=== PATIENT | male | born 1975 | race Caucasian/White ===

== ENCOUNTER 2019-03-30 20:43 | Emergency (ER) | payer BC ==
[~2019-03-30] VITALS: Ht 180.3 cm; Wt 90.0 kg
[2019-03-30 20:58] VITALS: BP 173/92
--- NOTE | 2019-03-30 21:08 | PHYS DOC ---
Past History Past Medical History: No Pertinent History Past Surgical History: No Surgical History Alcohol Use: Occasionally Adult General Chief Complaint Chief Complaint: MECHANICAL FALL HPI HPI Patient is a 43-year-old male who presents to the emergency department for evaluation. He states 10 days ago he slipped on the ice and landed awkwardly, with his fist against his left ribs. He had some mild residual soreness over the past 2 days, but states today he twisted wrong, and felt a crack in his left ribs, and is having pain in that area. He denies any significant shortness of breath, but deep breathing worsens his pain. He denies any cough, hematemesis, dizziness, lightheadedness, or abdominal pain. There are no alleviating or exacerbating factors to his symptoms except as noted above. Review of Systems Review of Systems Constitutional: Denies fever or chills [] Eyes: Denies change in visual acuity, redness, or eye pain [] HENT: Denies nasal congestion or sore throat [] Respiratory: Denies cough or shortness of breath [] Cardiovascular: No additional information not addressed in HPI [] GI: Denies abdominal pain, nausea, vomiting, bloody stools or diarrhea [] : Denies dysuria or hematuria [] Musculoskeletal: Denies back pain or joint pain [] Integument: Denies rash or skin lesions [] Neurologic: Denies headache, focal weakness or sensory changes [] Endocrine: Denies polyuria or polydipsia [] All other systems were reviewed and found to be within normal limits, except as documented in this note. Current Medications Current Medications Current Medications Medications (Trade) Dose Ordered Sig/[facility] Start Time Stop Time Status Last Admin Dose Admin Acetaminophen (Tylenol) 650 mg 1X ONCE 03/30/19 21:15 03/30/19 21:16 UNV Allergies Allergies Allergies Coded Allergies Type Severity Reaction Last Updated Verified No Known Drug Allergies 03/30/19 No Physical Exam Physical Exam PHYSICAL EXAM: CONSTITUTIONAL: Well developed, well nourished HEAD: normocephalic, atraumatic EENT: PERRL, EOMI. Conjunctivae normal color, sclerae non-icteric; moist mucous membranes. NECK: Supple, non-tender; no meningismus. LUNGS: Lungs CTA, breathing even and unlabored. Normal air movement. HEART: Regular rate and rhythm, no murmur CHEST: No deformity; there is tenderness to palpation to the left lateral/inferior costal margin, without any crepitus, bruising, or deformity. The remainder of the thorax is atraumatic. ABDOMEN: The abdomen is soft, and non-tender, no masses or bruits. EXTREM: Normal ROM; no deformity, no calf tenderness. Normal pulses palpable in all extremities. There is no pedal edema. SKIN: No rash; no diaphoresis NEURO: Alert; normal speech and cognition; CN's grossly intact; strength grossly intact without focal deficit. BACK: No CVA TTP. Current Patient Data Vital Signs Vital Signs Date Time Temp Pulse Resp B/P (MAP) Pulse Ox O2 Delivery O2 Flow Rate FiO2 03/30/19 20:58 98.6 119 18 173/92 (119) 98 Room Air EKG EKG [] Radiology/Procedures Radiology/Procedures []ER physician preliminary chest/rib x-ray interpretation: No acute abnormality noted. Course & Med Decision Making Course & Med Decision Making Pertinent Imaging studies reviewed. (See chart for details) []I discussed the patient's incidentally noted elevated blood pressure, something he states is a chronic problem for him. I discussed the importance of further outpatient follow-up and blood pressure treatment. We discussed test results, home care plan, and return precautions in detail. Dragon Disclaimer Dragon Disclaimer This electronic medical record was generated, in whole or in part, using a voice recognition dictation system. Departure Departure: Impression: Primary Impression: Chest wall contusion Disposition: HOME, SELF-CARE Condition: STABLE Patient Instructions: Rib Contusion Additional Instructions: Ibuprofen 400-600 mg every 6 hours may help improve your symptoms. AYLEEN SALVADOR MD Mar 30, 2019 21:08
[2019-03-30] MEDS ORDERED: ACETAMINOPHEN 325 MG TABLET PO ONE (21:30)
--- NOTE | 2019-03-30 21:54 | RAD ---
RIBS LEFT AND PA CHEST History: Fall. Pain. Technique: PA view the chest and additional views of the left ribs. Comparison: None. Findings: No consolidation or pleural effusion. No pneumothorax. Normal heart size. No displaced rib fractures. Impression: 1. No acute cardiopulmonary process. No displaced rib fractures. Electronically signed by: Cristino Jj DO (03/30/2019 9:52 PM) [id number]
== END 2019-03-30 21:50 | disposition home or self-care (01) ==
LOC: ER 20:43
DX: S20.212A Contusion of left front wall of thorax, initial encounter (principal); W00.0XXA Fall on same level due to ice and snow, initial encounter; Y93.89 Activity, other specified; Y92.89 Other specified places as the place of occurrence of the external cause; Y99.8 Other external cause status
CPT/HCPCS: 71101; 99284

== ENCOUNTER 2020-11-11 20:34 | Emergency (ER) | payer BC ==
[~2020-11-11] VITALS: Ht 180.3 cm; Wt 85.1 kg
[2020-11-11 20:45] VITALS: BP 158/86
--- NOTE | 2020-11-11 21:42 | RAD ---
XR RIBS MIN 3 VIEWS RT W/PA CHEST DATE: 11/11/2020 8:57 PM INDICATION: fall, PAIN MID-POST RIBS / Spl. Instructions: / History: COMPARISON: None available. FINDINGS: Chest: Heart size is within normal limits. No focal consolidations are seen. No evidence for pulmona ry edema, pleural effusion, or pneumothorax. Bones: No radiographic evidence for a displaced, right-sided rib fracture is seen. IMPRESSION: No radiographic evidence for right-sided rib fracture. Electronically signed by: Albert Damico MD (11/11/2020 9:40 PM) [facility]
--- NOTE | 2020-11-11 21:50 | PHYS DOC ---
Past History Past Medical History: No Pertinent History Past Surgical History: No Surgical History Alcohol Use: Occasionally General Adult EDM: Chief Complaint: RIB PAIN HPI: HPI: 45-year-old male presents with right-sided rib pain. The patient was standing on the bumper of his truck moving a tire when he slipped and landed on his right ribs on the tailgate. This was several days ago. He comes in tonight because he is still having pain and is concerned he may have a fracture. He sneezed today and was extremely painful. He denies chest pain or shortness of breath. He has no other complaints this time. Review of Systems: Review of Systems: Constitutional: Denies fever or chills Eyes: Denies change in visual acuity HENT: Denies nasal congestion or sore throat Respiratory: Denies cough or shortness of breath Cardiovascular: Denies chest pain or edema GI: Denies abdominal pain, nausea, vomiting, bloody stools or diarrhea : Denies dysuria Musculoskeletal: Right rib pain Integument: Denies rash Neurologic: Denies headache, focal weakness or sensory changes Endocrine: Denies polyuria or polydipsia Lymphatic: Denies swollen glands Psychiatric: Denies depression or anxiety Allergies: Allergies: Allergies Coded Allergies Type Severity Reaction Last Updated Verified No Known Drug Allergies 03/30/19 No Physical Exam: PE: Constitutional: Well developed, well nourished, no acute distress, non-toxic appearance. [] HENT: Normocephalic, atraumatic, bilateral external ears normal, oropharynx moist, no oral exudates, nose normal. [] Eyes: PERRLA, EOMI, conjunctiva normal, no discharge. [] Neck: Normal range of motion, no tenderness, supple, no stridor. [] Cardiovascular:Heart rate regular rhythm, no murmur [] Lungs & Thorax: Bilateral breath sounds clear to auscultation. No ecchymosis or obvious signs of trauma of the right chest wall. [] Abdomen: Bowel sounds normal, soft, no tenderness, no masses, no pulsatile ma sses. [] Skin: Warm, dry, no erythema, no rash. [] Back: No tenderness, no CVA tenderness. [] Extremities: No tenderness, no cyanosis, no clubbing, ROM intact, no edema. [] Neurologic: Alert and oriented X 3, normal motor function, normal sensory function, no focal deficits noted. [] Psychologic: Affect normal, judgement normal, mood normal. [] EKG: EKG: [] Radiology/Procedures: Radiology/Procedures: [] Impressions: XR RIBS MIN 3 VIEWS RT W/PA CHEST DATE: 11/11/2020 8:57 PM INDICATION: fall, PAIN MID-POST RIBS / Spl. Instructions: / History: COMPARISON: None available. FINDINGS: Chest: Heart size is within normal limits. No focal consolidations are seen. No evidence for pulmonary edema, pleural effusion, or pneumothorax. Bones: No radiographic evidence for a displaced, right-sided rib fracture is seen. IMPRESSION: No radiographic evidence for right-sided rib fracture. Electronically signed by: Isaura San MD (11/11/2020 9:40 PM) [facility] DICTATED AND SIGNED BY: ISAURA SAN MD DATE: 11/11/202133 CC: STEPHAN AGUILAR DO; PCP,NO ~MTH0 0 Heart Score: C/O Chest Pain: N/A Risk Factors: Risk Factors: DM, Current or recent (<one month) smoker, HTN, HLP, family history of CAD, obesity. Risk Scores: Score 0 - 3: 2.5% MACE over next 6 weeks - Discharge Home Score 4 - 6: 20.3% MACE over next 6 weeks - Admit for Clinical Observation Score 7 - 10: 72.7% MACE over next 6 weeks - Early Invasive Strategies Course & Med Decision Making: Course & Med Decision Making Pertinent Labs and Imaging studies reviewed. (See chart for details) Patient appears to have rib contusions. I have told him that this can take a few weeks to get better. I will prescribe him a short course of [place] 5/325 to help him when the pain is severe. The patient is stable for discharge at this time. [] Dragon Disclaimer: Dragon Disclaimer: This electronic medical record was generated, in whole or in part, using a voice recognition dictation system. Departure Departure: Impression: Primary Impression: Contusion of rib on right side Qualified Codes: S20.211A - Contusion of right front wall of thorax, initial encounter Disposition: HOME / SELF CARE / HOMELESS Condition: STABLE Referrals: PCP,NO (PCP) Patient Instructions: Rib Contusion Scripts Hydrocodone/Acetaminophen (Hydrocodone-Acetamin 5-325 mg) 1 Each Tablet 1 EACH PO Q4-6HRS PRN for PAIN, #10 TAB Prov: STEPHAN AGUILAR DO 11/11/20 STEPHAN AGUILAR DO Nov 11, 2020 21:50
[2020-11-11] MEDS ORDERED: HYDR-2759 PO (22:02)
[2020-11-11] MEDS ORDERED: HYDROcodone/APAP 5/325MG 1 TAB TABLET PO ONE (22:30)
== END 2020-11-11 22:20 | disposition home or self-care (01) ==
LOC: ER 20:34
DX: S20.211A Contusion of right front wall of thorax, initial encounter (principal); V89.9XXA Person injured in unspecified vehicle accident, initial encounter; Y93.89 Activity, other specified; Y92.89 Other specified places as the place of occurrence of the external cause; Y99.8 Other external cause status
CPT/HCPCS: 71101; 99283

== ENCOUNTER 2021-02-28 23:37 | Emergency (ER) | payer BC ==
[~2021-02-28] VITALS: Ht 180.3 cm; Wt 85.1 kg
[~2021-02-28 23:37] MED LIST: HYDR-2759 PO
--- NOTE | 2021-03-01 00:02 | PHYS DOC ---
Past History Past Medical History: No Pertinent History Past Surgical History: No Surgical History Alcohol Use: Occasionally Adult General Chief Complaint Chief Complaint: LACERATION/AVULSION HPI HPI Patient is an otherwise healthy 45-year-old male that cut his thumb with a razor blade when trying to score some glass. States he had a tetanus booster 3 months ago after cutting his finger. Denies any other injuries. States this happened just before coming in. Review of Systems Review of Systems Review of systems otherwise unremarkable except noted in HPI Allergies Allergies Allergies Coded Allergies Type Severity Reaction Last Updated Verified No Known Drug Allergies 03/30/19 No Physical Exam Physical Exam Constitutional: Well developed, well nourished, no acute distress, non-toxic appearance. [] HENT: Normocephalic, atraumatic, Extremities: 2 cm linear superficial laceration bleeding controlled on distal tip of thumb, neurovascular exam intact Neurologic: Alert and oriented X 3, normal motor function, normal sensory function, no focal deficits noted. [] Psychologic: Affect normal, judgement normal, mood normal. [] EKG EKG [] Radiology/Procedures Radiology/Procedures [] Heart Score C/O Chest Pain: No Risk Factors: Risk Factors: DM, Current or recent (<one month) smoker, HTN, HLP, family history of CAD, obesity. Risk Scores: Risk Factors: DM, Current or recent (<one month) smoker, HTN, HLP, family history of CAD, obesity. Course & Med Decision Making Course & Med Decision Making Patient is a 45-year-old male who comes in with a thumb laceration Vital signs not concerning. Physical exam noted above. Wound extensively cleaned. No need for suture repair. Dermabond applied. Given wound care instructions and materials for home. Started on antibiotics. Advised to follow-up with primary care physician next week for reevaluation. Gave return precautions to the ED. Patient grateful, verbalized understanding and agreed with plan of discharge. [] Dragon Disclaimer Dragon Disclaimer This electronic medical record was generated, in whole or in part, using a voice recognition dictation system. Departure Departure: Impression: Primary Impression: Finger laceration Disposition: HOME / SELF CARE / HOMELESS Condition: GOOD Referrals: PCP,MAXIMO (PCP) WERNER HERNANDEZ MD Patient Instructions: Laceration Care, Adult, Tissue Adhesive Wound Care Additional Instructions: Thank you for coming into the emergency department tonight and allowing us to take care of you. Please read the attached information carefully to go back over some of the things we discussed. Please keep the area clean, dried, and bandaged as discussed. You are given wound care material for home. Please do this 2-3 times daily and clean with warm soap and water. Over the next 24 hours do not soak in water but lightly clean as to not dislodge your sealant. Please follow-up with your primary care physician next week for reevaluation as needed. Please come back with new or concerning symptoms as discussed. Please take antibiotics as prescribed. You can also use Tylenol and ibuprofen as needed. Scripts Cephalexin (KEFLEX) 500 Mg Capsule 1 CAP PO TID for wound for 5 Days, #15 CAP Prov: ROSEMARIE HOLDEN MD 03/01/21 ROSEMARIE HOLDEN MD Mar 01, 2021 00:02
[2021-03-01 00:07] VITALS: BP 161/101
[2021-03-01] MEDS ORDERED: CEPH500C PO (00:16)
[2021-03-01] MEDS ORDERED: CEPHALEXIN 250 MG CAPSULE PO ONE (01:00)
== END 2021-03-01 00:29 | disposition home or self-care (01) ==
LOC: ER 23:37
DX: S61.012A Laceration without foreign body of left thumb without damage to nail, initial encounter (principal); W27.8XXA Contact with other nonpowered hand tool, initial encounter; Y93.89 Activity, other specified; Y92.89 Other specified places as the place of occurrence of the external cause; Y99.8 Other external cause status
CPT/HCPCS: 12001; 99283